=== PATIENT | female | born 1955 | race Caucasian/White ===

== ENCOUNTER 2016-05-22 05:14 | Emergency (ER) | payer MEDICARE, MEDICAID ==
[2016-05-22 06:13] LABS: Hematocrit 41 % (35-47); Hemoglobin 13.5 g/dl (12.0-16.0); Mean Corpuscular HGB Conc 33 g/dl (31-36); Mean Corpuscular Hemoglobin 30 pg (27-31); Mean Corpuscular Volume 89 fL (80-97); Mean Platelet Volume 9 um3 (7.4-10.4); Red Blood Count 4.58 10^6/ul (4.0-5.4); Red Cell Distribution Width 13 % (10.5-15); White Blood Count 6.6 10^3/ul (3.5-10.8)
[2016-05-22 06:25] LABS: ALT 13 U/L (7-52); AST 14 U/L (13-39); Albumin 3.9 g/dL (3.2-5.2); Alkaline Phosphatase 86 U/L (34-104); Anion Gap 4 mmol/L (2-11); BUN/Creatinine Ratio 12.3 (8-20); Blood Urea Nitrogen 9 mg/dL (6-24); CO2 Carbon Dioxide 35 mmol/L (22-32); Calcium 9.3 mg/dL (8.6-10.3); Chloride 102 mmol/L (101-111); EGFR African American 104.6 (>60); EGFR Non-African American 81.3 (>60); Globulin 2.8 g/dL (2-4); Glucose 99 mg/dL (70-100); Magnesium 2.3 mg/dL (1.9-2.7); Potassium 3.1 mmol/L (3.5-5.0); Sodium 141 mmol/L (133-145); Total Protein 6.7 g/dL (6.4-8.9)
[2016-05-22 06:39] LABS: Valproic Acid < 13.0 mcg/mL (50-100)
[2016-05-22] MEDS ORDERED: Potassium Chlor TAB* 20 MEQ TAB.ER PO ONE (06:39)
--- NOTE | 2016-05-22 06:39 | ED ---
Natalie Singh Erika, scribed for Naomie Lopez MD on 05/22/16 at 0527 . Neurological HPI - HPI Summary HPI Summary: Patient is a 61-year-old female BIBA to the ED with a CC of seizure. Per EMS, pt had a 0-rbqlep-dtrn, witnessed, tonic-clonic seizure at [facility], and was post-ictal afterwards, but this has resolved. Pt has a Hx dementia, and cannot provide a history. Hx dementia, intellectual disability, depression. LEVEL 5 CAVEAT - DEMENTIA. - History of Current Complaint Chief Complaint: EDSeizure Stated Complaint: SEIZURES Hx Obtained From: EMS Hx Last Menstrual Period: menopausal Onset/Duration: Resolved Current Severity: None Seizure Severity: Moderate Number of Seizures: 1 - lasted 5 minutes Syncope Context: Witnessed Seizure Character: Total-Clonic - Allergy/Home Medications Allergies/Adverse Reactions: Allergies Allergy/AdvReac Type Severity Reaction Status Date / Time Tobar Allergy Severe Unknown Verified 05/23/15 08:39 Reaction Details Milk-related Compounds Allergy Severe Unknown Verified 05/23/15 08:39 Reaction Details Eggs or Egg-derived Products Allergy Unknown Verified 05/23/15 08:39 Reaction Details Home Medications: Home Medications Lactulose* 30 ml PO BID 05/22/16 [History Confirmed 05/22/16] Lanolin OINT SYLVESTER* [Lansinoh OINT*] 1 applic TOPICAL BID 05/22/16 [History Confirmed 05/22/16] levETIRAcetam TAB* [Keppra TAB*] 500 mg PO BEDTIME 05/22/16 [History Confirmed 05/22/16] levETIRAcetam TAB* [Keppra TAB*] 750 mg PO BID 05/22/16 [History Confirmed 05/22] PMH/Surg Hx/FS Hx/Imm Hx Sensory History: Reports: Hx Contacts or Glasses - AT [facility] Opthamlomology History: Reports: Hx Contacts or Glasses - AT [facility] Neurological History: Reports: Hx Dementia, Hx Seizures, Other Neuro Impairments /Disorders - Intellectual disability Psychiatric History: Reports: Hx Anxiety, Hx Depression, Hx of Violent Episodes Against Others - CAN BE COMBATIVE POST SEIZURES Infectious Disease History: No Infectious Disease History: Denies: Traveled Outside the [place] in Last 30 Days - Family History Known Family History: Positive: Unknown - Level 5 caveat - dementia - Social History Occupation: Disabled Lives: [facility] [employer] Alcohol Use: None Hx Substance Use: No Substance Use Type: Reports: None Hx Tobacco Use: No Smoking Status (MU): Never Smoked Tobacco Review of Systems - ROS Summary Review of Systems Summary: LEVEL 5 CAVEAT - DEMENTIA. 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 No signs of trauma Eyes: Positive: EOMI, CRUZ ENT: Positive: Pharynx normal, TMs normal Neck: Positive: Supple, Nontender Respiratory/Lung Sounds: Positive: Clear to Auscultation, Breath Sounds Present. Negative: Rales, Rhonchi, Wheezes Cardiovascular: Positive: RRR, Other - No gallops. Negative: Murmur, Rub Abdomen Description: Positive: Nontender, Soft, Other: - No rebound. Negative: Distended, Guarding Bowel Sounds: Positive: Present Musculoskeletal: Positive: Strength/ROM Intact. Negative: Edema Left, Edema Right Neurological: Positive: Sensory/Motor Intact, Other - CN II-XII intact. Alert, but not oriented Psychiatric: Positive: Affect/Mood Appropriate Diagnostics - Vital Signs Vital Signs Temp Pulse Resp BP Pulse Ox 05/22/16 05:15 98.1 F 74 16 110/66 100 - Laboratory Lab Results: Lab Results 05/22/16 05/22/16 Range/Units 05:40 05:40 WBC 6.6 (3.5-10.8) 10^3/ul RBC 4.58 (4.0-5.4) 10^6/ul Hgb 13.5 (12.0-16.0) g/dl Hct 41 (35-47) % MCV 89 (80-97) fL MCH 30 (27-31) pg MCHC 33 (31-36) g/dl RDW 13 (10.5-15) % Plt Count 180 (150-450) 10^3/ul MPV 9 (7.4-10.4) um3 Neut % (Auto) 64.8 (38-83) % Lymph % (Auto) 29.2 (25-47) % Cocke % (Auto) 3.8 (1-9) % Eos % (Auto) 1.9 (0-6) % Baso % (Auto) 0.3 (0-2) % Absolute Neuts (auto) 4.3 (1.5-7.7) 10^3/ul Absolute Lymphs (auto) 1.9 (1.0-4.8) 10^3/ul Absolute Monos (auto) 0.3 (0-0.8) 10^3/ul Absolute Eos (auto) 0.1 (0-0.6) 10^3/ul Absolute Basos (auto) 0 (0-0.2) 10^3/ul Absolute Nucleated RBC 0.01 10^3/ul Nucleated RBC % 0.1 Sodium 141 (133-145) mmol/L Potassium 3.1 L (3.5-5.0) mmol/L Chloride 102 (101-111) mmol/L Carbon Dioxide 35 H (22-32) mmol/L Anion Gap 4 (2-11) mmol/L BUN 9 (6-24) mg/dL Creatinine 0.73 (0.51-0.95) mg/dL Est GFR ( Amer) 104.6 (>60) Est GFR (Non-Af Amer) 81.3 (>60) BUN/Creatinine Ratio 12.3 (8-20) Glucose 99 (70-100) mg/dL Calcium 9.3 (8.6-10.3) mg/dL Magnesium 2.3 (1.9-2.7) mg/dL Total Bilirubin 0.40 (0.2-1.0) mg/dL AST 14 (13-39) U/L ALT 13 (7-52) U/L Alkaline Phosphatase 86 (34-104) U/L Total Protein 6.7 (6.4-8.9) g/dL Albumin 3.9 (3.2-5.2) g/dL Globulin 2.8 (2-4) g/dL Albumin/Globulin Ratio 1.4 (1-3) Valproic Acid Pending Result Diagrams: 05/22/16 05:40 05/22/16 05:40 Lab Statement: Any lab studies that have been ordered have been reviewed, and results considered in the medical decision making process. Course/Dx - Course Course Of Treatment: 61 yo female with dementia and epilepsy who comes in s/p seizure with post ictal state resolved. She has apparently been switched off of valproic acid but a level is pending as well as a leviciratem level. Other labs are essentially normal waiting on a urine now and will replete potassium. Will sign pt out to am physician Tonny - Diagnoses Provider Diagnoses: Seizure Discharge - Discharge Plan Condition: Stable Disposition: HOME The documentation as recorded by the Natalie noel Erika accurately reflects the service I personally performed and the decisions made by me, Naomie Lopez MD.
[2016-05-22 06:52] LABS: Urine Bilirubin Negative (Negative); Urine Glucose Negative (Negative); Urine Nitrite Negative (Negative)
[2016-05-22 07:11] VITALS: BP 109/72
== END 2016-05-22 07:22 | disposition home or self-care (01) ==
LOC: ED 05:14
DX: G40.409 Other generalized epilepsy and epileptic syndromes, not intractable, without status epilepticus (principal); F03.90 Unspecified dementia, unspecified severity, without behavioral disturbance, psychotic disturbance, mood disturbance, and anxiety; F79 Unspecified intellectual disabilities
CPT/HCPCS: 36415; 80053; 80164; 80177; 81003; 83735; 85025; 87641; 99283; A9270-GY

== ENCOUNTER 2017-07-24 09:11 | Emergency (ER) | payer MEDICARE, MEDICAID ==
[2017-07-24] MEDS ORDERED: levETIRAcetam TAB* 500 MG PO ONE (09:34)
--- NOTE | 2017-07-24 10:11 | RAD ---
INDICATION: Seizure with subsequent trauma yielding hematoma to forehead COMPARISON: Most recent comparison CT of the brain is dated July 08, 2015 TECHNIQUE: Contiguous axial sections of the brain were obtained from the skull base to the vertex without contrast. FINDINGS: The ventricles, cisterns and sulci exhibit symmetrical involutional changes unchanged from the prior CT of the brain. There is mild to moderate periventricular and subcortical white matter hypoattenuation, similar to the previous CT of the brain, and most consistent with chronic microvascular disease. The lau-white matter differentiation is adequately maintained and there is no sulcal effacement. No significant focal abnormality or mass effect is present. There is no evidence for intracranial hemorrhage. There is subcutaneous induration and thickening overlying the left frontal bone consistent with recent trauma without underlying calvarial fracture. The visualized portion of the paranasal sinuses appear clear. The mastoid air cells are well aerated bilaterally. IMPRESSION: 1. Soft tissue swelling and induration overlying the left frontal bone without underlying calvarial fracture or acute intracranial hemorrhage. 2. Chronic intracranial findings described above.
[2017-07-24 10:35] VITALS: BP 105/88
--- NOTE | 2017-07-24 10:45 | ED ---
Alton Singh Stephanie, scribed for Savage Cope MD on 07/24/17 at 0941 . Neurological HPI - HPI Summary HPI Summary: The pt is a 62 y/o F BIBA to the ED with c/o seizure that occurred at 08:30 today. Per triage note, the seizure occurred while eating breakfast and lasted 1 min. The pt fell off her bed causing head trauma. She denies BABIN, nausea and neck pain. The pt is on Keppra 1000 mg BID. HPI limited due to dementia at baseline. - History of Current Complaint Chief Complaint: EDSeizure Stated Complaint: SEIZURE Time Seen by Provider: 07/24/17 09:28 Hx Obtained From: Patient, Medical Records Hx From Patient Unobtainable Due To: Dementia Hx Last Menstrual Period: menopausal Onset/Duration: Sudden Onset, Started hours ago, Resolved Timing: Intermittent Episodes Lasting: - 1 minute Current Severity: Mild Pain Intensity: 3 Pain Scale Used: 0-10 Numeric Syncope Context: Witnessed Aggravating: Nothing Alleviating: Spontanious Resolution - Allergy/Home Medications Allergies/Adverse Reactions: Allergies Allergy/AdvReac Type Severity Reaction Status Date / Time saleh Allergy Unknown Verified 07/24/17 09:20 Reaction Details Egg Derived Allergy Unknown Verified 07/24/17 09:20 Reaction Details milk Allergy Unknown Verified 07/24/17 09:20 Reaction Details Home Medications: Home Medications Acetaminophen TAB* [Tylenol TAB*] 650 mg PO Q6H PRN 07/24/17 [History Confirmed 07/24/17] Citalopram TAB* [CeleXA TAB*] 20 mg PO DAILY 07/24/17 [History Confirmed ] Donepezil TAB* [Aricept 5 MG TAB*] 10 mg PO BEDTIME 07/24/17 [History Confirmed 07/24/17] Lactobacillus Acidophilus* [Culturelle*] 1 cap PO BID 07/24/17 [History Confirmed 07/24/17] Loperamide CAP* [Imodium CAP*] 2 mg PO Q4H PRN 07/24/17 [History Confirmed 07/24] QUEtiapine TAB* [SEROquel TAB*] 100 mg PO TID 07/24/17 [History Confirmed ] PMH/Surg Hx/FS Hx/Imm Hx Sensory History: Reports: [facility] Op[facility] History: Reports: [facility]x [facility] - [facility] Neurological History: Reports: Hx Dementia, Hx Seizures, Other Neuro Impairments /Disorders - Intellectual disability Psychiatric History: Reports: Hx Anxiety, Hx Depression, Hx of Violent Episodes Against Others - CAN BE COMBATIVE POST SEIZURES - Surgical History Surgery Procedure, Year, and Place: UNKNOWN due to pt having dementia Infectious Disease History: No Infectious Disease History: Denies: Traveled Outside the [place] in Last 30 Days - Family History Known Family History: Positive: Unknown - Level 5 caveat - dementia - Social History Occupation: Retired Lives: [facility] Alcohol Use: None Hx Substance Use: No Substance Use Type: Reports: None Hx Tobacco Use: No Smoking Status (MU): Never Smoked Tobacco Have You Smoked in the Last Year: No Review of Systems - ROS Summary Review of Systems Summary: ROS limited due to dementia at baseline. Negative: Fever Negative: Nausea Musculoskeletal: Negative - Neck pain Negative: Headache All Other Systems Reviewed And Are Negative: Yes Physical Exam - Summary Physical Exam Summary: Appearance: mildly ill-appearing, no pain distress Skin: warm, dry, reflects adequate perfusion Head/face: hematoma on L forehead near hairline Eyes: EOMI, CRUZ ENT: normal, no bleeding from mouth Neck: supple, non-tender, no midline tenderness Respiratory: CTA, breath sounds present Cardiovascular: RRR, pulses symmetrical Abdomen: non-tender, soft Bowel Sounds: present Musculoskeletal: strength/ROM intact, no evidence of injuries to extremities, tremor in UE bilaterally Neuro: sensory motor intact, A&Ox3, generalized weakness Triage Information Reviewed: Yes Vital Signs On Initial Exam: Initial Vitals Temp Pulse Resp BP Pulse Ox 97.3 F 82 14 142/76 98 07/24/17 09:16 07/24/17 09:16 07/24/17 09:16 07/24/17 09:16 07/24/17 09:16 Vital Signs Reviewed: Yes Diagnostics - Vital Signs Vital Signs Temp Pulse Resp BP Pulse Ox 07/24/17 09:16 97.3 F 82 14 142/76 98 - Laboratory Lab Statement: Any lab studies that have been ordered have been reviewed, and results considered in the medical decision making process. - CT Brain CT Interpretation: Positive (See Comments) CT Interpretation Completed By: Radiologist - 1. Soft tissue swelling and induration overlying the left frontal bone without underlying calvarial fracture or acute intracranial hemorrhage. 2. Chronic intracranial findings described above. ED physician has reviewed this report. Re-Evaluation - Re-Evaluation First Eval Re-Evaluation Time: 10:27 Change: Unchanged - Pt discussed plan of discharge with the pt. Course/Dx - Course Course Of Treatment: [facility] She had a fall after seizure. Has known epilepsy. On Keppra. Did not receive a.m. meds. Keppra dose given. CT is negative. Patient also has a POLST indicating comfort care measures and do not send to Hospital. - Differential Dx Differential Diagnoses Neuro: Positive: Headache, Hematoma, Hemorrhage - Diagnoses Provider Diagnoses: Closed head injury without concussion, Epileptic seizure, Scalp hematoma Discharge - Sign-Out/Discharge Documenting (check all that apply): Discharge/Admit/Transfer - Discharge - Discharge Plan Condition: Stable Disposition: CUSTODIAL FACILITY Patient Education Materials: Head Injury (ED) Referrals: Efe Rowell MD [Primary Care Provider] - Additional Instructions: Return to [facility]. Return if worse, new symptoms or other concerns. Patient's POLST indicates DO NOT SEND TO HOSPITAL unless severe symptoms. - Billing Disposition and Condition Condition: STABLE Disposition: SNF The documentation as recorded by the Alton noel Stephanie accurately reflects the service I personally performed and the decisions made by Anatoliy joshi Kirk, MD.
== END 2017-07-24 10:32 ==
LOC: ED 09:11
DX: S09.90XA Unspecified injury of head, initial encounter (principal); G40.909 Epilepsy, unspecified, not intractable, without status epilepticus; S00.03XA Contusion of scalp, initial encounter; W06.XXXA Fall from bed, initial encounter; Y92.9 Unspecified place or not applicable
CPT/HCPCS: 70450; 99283; A9270-GY

== ENCOUNTER 2018-01-22 10:49 | Emergency (ER) | payer MEDICARE, MEDICAID ==
--- NOTE | 2018-01-22 11:19 | ED ---
Head Injury - HPI Summary HPI Summary: Level 5 caveat: Unable to obtain complete HPI due to dementia The pt is a 63 y/o female BIBA to [facility] c/o head injuries s/p a fall from a standing position. She notes a parietal BABIN and neck pain rated 6/10 in severity. Per EMS the pt did not speak at baseline. She is a comfort measures only pt at [facility]. - History Of Current Complaint Stated Complaint: FALL Time Seen by Provider: 01/22/18 10:53 Hx Obtained From: Patient, EMS Hx From Patient Unobtainable Due To: Dementia Hx Last Menstrual Period: Menopausal Mechanism Of Injury: Fall From A Standing Position Onset/Duration: Still Present Severity Currently: Moderate Severity Initially: Moderate Pain Intensity: 6 Pain Scale Used: 0-10 Numeric Location of Head Injury: Parietal Associated Signs And Symptoms: Neck Pain, Headache - Allergies/Home Medications Allergies/Adverse Reactions: Allergies Allergy/AdvReac Type Severity Reaction Status Date / Time saleh Allergy Unknown Verified 07/24/17 09:20 Reaction Details Egg Derived Allergy Unknown Verified 07/24/17 09:20 Reaction Details milk Allergy Unknown Verified 07/24/17 09:20 Reaction Details PMH/Surg Hx/FS Hx/Imm Hx Previously Healthy: No - Level 5 caveat: Unable to obtain complete MHx due to dementia Sensory History: Reports: Hx [facility]es - [facility] Opthamlomology History: Reports: Hx Contacts or Glasses - AT [facility] Neurological History: Reports: Hx Dementia, Hx Seizures, Other Neuro Impairments /Disorders - Intellectual disability Psychiatric History: Reports: Hx Anxiety, Hx Depression, Hx of Violent Episodes Against Others - Can be combative post seizures - Surgical History Surgery Procedure, Year, and Place: Unknown due to pt having dementia Infectious Disease History: Unable to Obtain/Confirm Infectious Disease History: Denies: Traveled Outside the [place] in Last 30 Days - Family History Known Family History: Positive: Unknown - Level 5 caveat - dementia - Social History Occupation: Retired Lives: Assisted Living - [facility] Alcohol Use: None Hx Substance Use: No Substance Use Type: Reports: None Hx Tobacco Use: No Smoking Status (MU): Never Smoked Tobacco Have You Smoked in the Last Year: No Review of Systems - ROS Summary Review of Systems Summary: Level 5 caveat: Unable to obtain complete ROS due to dementia Constitutional: Other - Positive: Parietal Hematoma Musculoskeletal: Other - Positive: Neck pain Positive: Headache - Parietal All Other Systems Reviewed And Are Negative: No Physical Exam - Summary Physical Exam Summary: Level 5 caveat: Unable to obtain complete PE due to dementia Appearance: The patient is well-nourished and demented but in no acute distress and in no acute pain. She answers simple questions but it is unclear if they are appropriate. Skin: The skin is warm and dry and skin color reflects adequate perfusion. HEENT: The head has a mildly tender R cephalohematoma in the R parietal region . The pupils are equal and reactive. The conjunctivae are clear and without drainage. Nares are patent and without drainage. Mouth reveals moist mucous membranes and the throat is without erythema and exudate. The external ears are intact. The ear canals are patent and without drainage. The tympanic membranes are intact. Neck: The neck is supple with full range of motion and non-tender. There are no carotid bruits. There is no neck vein distension. Respiratory: Chest is non-tender. Lungs are clear to auscultation and breath sounds are symmetrical and equal. Cardiovascular: Heart is regular rate and rhythm. There is no murmur or rub auscultated. There is no peripheral edema and pulses are symmetrical and equal. Abdomen: The abdomen is soft and non-tender. There are normal bowel sounds heard in all four quadrants and there is no organomegaly palpated. Musculoskeletal: There is no back tenderness noted. Extremities are non-tender with full range of motion. There is good capillary refill. There is no peripheral edema or calf tenderness elicited. Neurological: Patient is alert and oriented to person, place and time. The patient has symmetrical motor strength in all four extremities. Cranial nerves are grossly intact. Deep tendon reflexes are symmetrical and equal in all four extremities. Psychiatric: The patient has an appropriate affect and does not exhibit any anxiety or depression. Triage Information Reviewed: Yes Vital Signs On Initial Exam: Initial Vitals Temp Pulse Resp BP Pulse Ox 96.7 F 76 18 113/81 98 01/22/18 10:55 01/22/18 10:55 01/22/18 10:55 01/22/18 10:55 01/22/18 10:55 Vital Signs Reviewed: Yes Completion Of Physical Exam Limited Due To: Dementia Diagnostics - Vital Signs Vital Signs Temp Pulse Resp BP Pulse Ox 01/22/18 10:55 96.7 F 76 18 113/81 98 - Laboratory Result Diagrams: 01/22/18 11:35 01/22/18 11:35 Lab Statement: Any lab studies that have been ordered have been reviewed, and results considered in the medical decision making process. Head Injury Course/Dx Course Of Treatment: Ms. Tracy was sent in with report that she had a breakthrough seizure today and hit her head. At baseline she is confused but she was not talking at all and she was sent him after consultation with the family. She is a comfort care patient only according to her MOLST form. She cannot give any history and her vitals are stable. She did have a cephalohematoma in the right parietal area. Labs were within normal limits and I could not identify any reason for her breakthrough seizure. She is on Keppra and the level was sent. A CT scan was not obtained as no action would be taken if it were positive. - Diagnoses Provider Diagnoses: Head injury, Breakthrough seizure Discharge - Sign-Out/Discharge Documenting (check all that apply): Patient Departure - DC - Discharge Plan Condition: Stable Disposition: HOME Patient Education Materials: Head Injury (ED), Epilepsy (ED) Referrals: Efe Rowell MD [Primary Care Provider] - Additional Instructions: Follow up with your PCP in 1-2 days Return to ED for any new or worsening symptoms - Billing Disposition and Condition Condition: STABLE Disposition: Home - Attestation Statements Document Initiated by Faridehibmario: Yes Documenting Scribe: Maggie Carter Provider For Whom Luis is Documenting (Include Credential): Dr. Sterling Ellis MD Scribe Attestation: Maggie Singh , scribed for Dr. Sterling Ellis MD on 01/22/18 at 2126. Scribe Documentation Reviewed: Yes Provider Attestation: The documentation as recorded by the Maggie noel accurately reflects the service I personally performed and the decisions made by me, Dr. Sterling Ellis MD
[2018-01-22 11:45] LABS: ABS Basophils 0.1 10^3/ul (0-0.2); ABS Eosinophils 0.1 10^3/ul (0-0.6); ABS Lymphocytes 1.4 10^3/ul (1.0-4.8); ABS Monocytes 0.2 10^3/ul (0-0.8); ABS Neutrophils 3.7 10^3/ul (1.5-7.7); ABS Nucleated RBC 0 10^3/ul; Hematocrit 44 % (35-47); Hemoglobin 14.3 g/dl (12.0-16.0); Lymphocyte % 25.2 % (25-47); Mean Corpuscular HGB Conc 33 g/dl (31-36); Mean Corpuscular Hemoglobin 30 pg (27-31); Mean Corpuscular Volume 92 fL (80-97); Mean Platelet Volume 9.2 um3 (7.4-10.4); Nucleated Red Blood Cells % 0.6; Platelet Count 170 10^3/ul (150-450); Red Blood Count 4.75 10^6/ul (4.00-5.40); Red Cell Distribution Width 14 % (10.5-15); White Blood Count 5.4 10^3/ul (3.5-10.8)
[2018-01-22 12:06] LABS: INR 0.93 (0.77-1.02)
[2018-01-22 13:55] VITALS: BP 141/87
== END 2018-01-22 14:25 | disposition home or self-care (01) ==
LOC: ED 10:49
DX: S09.90XA Unspecified injury of head, initial encounter (principal); G40.909 Epilepsy, unspecified, not intractable, without status epilepticus; W01.198A Fall on same level from slipping, tripping and stumbling with subsequent striking against other object, initial encounter; F03.90 Unspecified dementia, unspecified severity, without behavioral disturbance, psychotic disturbance, mood disturbance, and anxiety; Y92.129 Unspecified place in nursing home as the place of occurrence of the external cause
CPT/HCPCS: 36415; 80053; 80177; 83605; 83735; 85025; 85610; 99282

== ENCOUNTER 2018-07-15 10:47 | Emergency (ER) | payer MEDICARE ==
--- NOTE | 2018-07-15 11:04 | ED ---
Neurological HPI - HPI Summary HPI Summary: Patient is a 63 y/o female brought in by EMS who presents to the ED s/p seizure. She was sent here from [facility]. As per EMS, she had a witnessed seizure during her physical therapy appointment. There were no head injuries. She is currently post-ictal and minimally responds to voice commands. PMHx seizure, dementia, intellectual disability. As per medical records, patient is on Depakote and Keppra. Level 5 caveat due to dementia and AMS. - History of Current Complaint Chief Complaint: EDSeizure Stated Complaint: SEIZURES PER EMS Time Seen by Provider: 07/15/18 10:49 Hx Obtained From: EMS, Medical Records Hx From Patient Unobtainable Due To: Dementia Hx Last Menstrual Period: Menopausal Onset/Duration: Sudden Onset, Resolved Neurological Deficit Location: Generalized Pain Intensity: 0 Aggravating: Nothing Alleviating: Spontanious Resolution Associated Signs and Symptoms: Positive: Seizure Related Hx: Seizure - Allergy/Home Medications Allergies/Adverse Reactions: Allergies Allergy/AdvReac Type Severity Reaction Status Date / Time saleh Allergy Unknown Verified 07/24/17 09:20 Reaction Details Egg Derived Allergy Unknown Verified 07/24/17 09:20 Reaction Details milk Allergy Unknown Verified 07/24/17 09:20 Reaction Details Home Medications: Home Medications Divalproex Sprinkle CAP* [Depakote Sprinkle CAP*] 250 mg PO BID 07/15/18 [ History Confirmed 07/15/18] Lactase 3,000 unit PO Q6HR PRN 07/15/18 [History Confirmed 07/15/18] Loperamide HCl [Imodium A-D] 2 mg PO SEE INSTRUCTIONS PRN 07/15/18 [History Confirmed 07/15/18] Magnesium Hydroxide LIQ* [Milk of Magnesia LIQ*] 30 ml PO BEDTIME PRN 07/15/18 [ History Confirmed 07/15/18] levETIRAcetam LIQ* [Keppra LIQ*] 1,500 mg PO BID 07/15/18 [History Confirmed ] PMH/Surg Hx/FS Hx/Imm Hx Sensory History: Reports: Hx Contacts or Glasses - AT [facility] Opthamlomology History: Reports: Hx Contacts or Glasses - AT [facility] Neurological History: Reports: Hx Dementia, Hx Seizures, Other Neuro Impairments /Disorders - Intellectual disability Psychiatric History: Reports: Hx Anxiety, Hx Depression, Hx of Violent Episodes Against Others - Can be combative post seizures - Surgical History Surgery Procedure, Year, and Place: Unknown due to pt having dementia Infectious Disease History: No Infectious Disease History: Denies: Traveled Outside the [place] in Last 30 Days - Family History Known Family History: Positive: Unknown - Level 5 caveat - dementia - Social History Alcohol Use: None Hx Substance Use: No Substance Use Type: Reports: None Hx Tobacco Use: No Smoking Status (MU): Never Smoked Tobacco Have You Smoked in the Last Year: No Review of Systems Negative: Other - head injury Neurological: Other - seizure, post-ictal All Other Systems Reviewed And Are Negative: No Physical Exam - Summary Physical Exam Summary: Appearance: Well appearing, no pain distress Skin: warm, dry, reflects adequate perfusion Head/face: normal Eyes: EOMI, CRUZ ENT: normal Neck: supple, non-tender Respiratory: CTA, breath sounds present Cardiovascular: RRR, pulses symmetrical Abdomen: non-tender, soft Musculoskeletal: normal, strength/ROM intact Neuro: sensory motor intact, alert but not oriented, post-ictal and lethargic Triage Information Reviewed: Yes Vital Signs On Initial Exam: Initial Vitals Temp Pulse Resp BP Pulse Ox 97.6 F 89 16 111/81 97 07/15/18 10:49 07/15/18 10:49 07/15/18 10:49 07/15/18 10:49 07/15/18 10:49 Vital Signs Reviewed: Yes Completion Of Physical Exam Limited Due To: Dementia - Lashell Coma Scale Best Eye Response: 4 - Spontaneous Best Motor Response: 6 - Obeys Commands Best Verbal Response: 4 - Confused Coma Scale Total: 14 Diagnostics - Vital Signs Vital Signs Temp Pulse Resp BP Pulse Ox 07/15/18 10:49 97.6 F 89 16 111/81 97 - Laboratory Result Diagrams: 07/15/18 11:27 07/15/18 11:27 Lab Statement: Any lab studies that have been ordered have been reviewed, and results considered in the medical decision making process. - CT Brain CT CT Interpretation Completed By: Radiologist Summary of CT Findings: NO ACUTE INTRACRANIAL PATHOLOGY. DIFFUSE INVOLUTIONAL CHANGE WITH CHRONIC SMALL VESSEL ISCHEMIC CHANGES. ED physician reviewed radiology report. - EKG 11:17 Cardiac Rate: NL - 85 bpm EKG Rhythm: Sinus Rhythm ST Segment: Normal Summary of EKG Findings: Nl axis Re-Evaluation - Re-Evaluation First Eval Re-Evaluation Time: 12:30 Change: Improved Comment: Pt is now alert and oriented. However her exam is still limited due to her dementia. Course/Dx - Course Course Of Treatment: Patient is a 63 y/o female brought in by EMS who presents to the ED s/p seizure. PMHx seizure, dementia, intellectual disability. As per medical records, patient is on Depakote and Keppra. An initial physical exam revealed alert but not oriented, post-ictal and lethargic. GCS 14. Throughout the course patient became more alert and oriented. A brain CT was negative. An EKG revealed a normal rate of [address] Chaney, he recommends increasing her dosage to 500 mg Depakote BID. Final dx is seizure, and she is discharged back to [facility]. Patient is agreeable with this plan. - Differential Dx Differential Diagnoses Neuro: Positive: Seizure Disorder, Vasovagal Reaction - Diagnoses Provider Diagnoses: Seizure - Physician Notifications Discussed Care Of Patient With: Charlie Chaney Time Discussed With Above Provider: 13:30 Instructed by Provider To: Other - Increase her dosage to 500 mg Depakote BID and discharge the patient. Discharge - Sign-Out/Discharge Documenting (check all that apply): Patient Departure - Discharge Patient Received Moderate/Deep Sedation with Procedure: No - Discharge Plan Condition: Improved Disposition: HOME Prescriptions: Divalproex Sodium [Depakote] 500 mg PO BID #60 tablet. Patient Education Materials: Epilepsy (ED) Referrals: [place] DO [Primary Care Provider] - 3 Days Additional Instructions: Increase Depakote dosage to 500 [address] per [address] Chaney, neurologist. RETURN TO THE ED WITH ANY NEW OR WORSENING SYMPTOMS. - Billing Disposition and Condition Condition: IMPROVED Disposition: Home - Attestation Statements Document Initiated by Scribe: Yes Documenting Scribe: Jennifer Joe Provider For Whom Luis is Documenting (Include Credential): Tariq Junior MD Scribe Attestation: Jennifer Singh scribed for Tariq Junior MD on 07/15/18 at 1358. Scribe Documentation Reviewed: Yes Provider Attestation: The documentation as recorded by the Jennifer noel accurately reflects the service I personally performed and the decisions made by me, Tariq Junior MD Status of Scribe Document: Viewed
[2018-07-15] MEDS ORDERED: NS 0.9% 1000 ML** 1,000 ML IV ONE (11:08)
[2018-07-15 11:35] LABS: ABS Basophils 0 10^3/ul (0-0.2); ABS Eosinophils 0.1 10^3/ul (0-0.6); ABS Lymphocytes 1.3 10^3/ul (1.0-4.8); ABS Monocytes 0.2 10^3/ul (0-0.8); ABS Neutrophils 3.1 10^3/ul (1.5-7.7); ABS Nucleated RBC 0 10^3/ul; Eosinophil % 2.6 %; Hematocrit 36 % (33-41); Hemoglobin 12.2 g/dL (12.0-16.0); Lymphocyte % 27.2 %; Mean Corpuscular HGB Conc 34 g/dL (31-36); Mean Corpuscular Hemoglobin 31 pg (27-31); Mean Corpuscular Volume 92 fL (80-97); Nucleated Red Blood Cells % 0; Platelet Count 121 10^3/uL (150-450); Red Blood Count 3.92 10^6 /uL (3.70-4.87); Red Cell Distribution Width 14 % (10.5-15); White Blood Count 4.7 10^3/uL (3.5-10.8)
[2018-07-15 11:53] LABS: Albumin 3.7 g/dL (3.2-5.2); Albumin/Globulin Ratio 1.9 (1-3); BUN/Creatinine Ratio 23.7 (8-20); Calcium 8.7 mg/dL (8.6-10.3); EGFR African American 93.3 (>60); EGFR Non-African American 77.1 (>60); Potassium 3.9 mmol/L (3.5-5.0); Total Bilirubin 0.5 mg/dL (0.2-1.0); Total Protein 5.7 g/dL (6.4-8.9)
[2018-07-15] MEDS ORDERED: Valproic Acid CAP(*) 250 MG PO ONE (13:31)
[2018-07-15 14:54] VITALS: BP 105/74
== END 2018-07-15 14:40 | disposition home or self-care (01) ==
LOC: ED 10:47
DX: R56.9 Unspecified convulsions (principal); R94.31 Abnormal electrocardiogram [ECG] [EKG]; F03.90 Unspecified dementia, unspecified severity, without behavioral disturbance, psychotic disturbance, mood disturbance, and anxiety; Z91.012 Allergy to eggs
CPT/HCPCS: 36415; 70450; 80053; 80164; 83735; 84484; 85025; 93005; 96360; 99284; A9270-GY

== ENCOUNTER → 2018-09-04 16:28 | Emergency (ER) | payer MEDICARE ==
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
[2018-09-04 22:13] VITALS: BP 101/78
== END | disposition home or self-care (01) ==
LOC: ED 16:28
DX: S32.502A Unspecified fracture of left pubis, initial encounter for closed fracture (principal); W19.XXXA Unspecified fall, initial encounter; Y92.129 Unspecified place in nursing home as the place of occurrence of the external cause; M47.892 Other spondylosis, cervical region; E04.1 Nontoxic single thyroid nodule; Z79.899 Other long term (current) drug therapy
CPT/HCPCS: 70450; 72125; 72190; 99283

== ENCOUNTER 2018-10-02 01:11 | Emergency (ER) | payer MEDICARE, MEDICAID ==
--- OUTSIDE RECORDS SUMMARY | 2018-10-02 02:12 | XMS REPORT | Continuity of Care Document ---
:1955 External Reference #:[id number] Author Name Gail Cardoza Care Team Providers Name Role Phone Tierra Grande DO Primary Care Physician Unavailable Payers Date Identification Numbers Payment Provider Subscriber Effective: 2014 Policy Number: [id number] Medicare Keisha Tracy PayID: [id number] [address] [place] [address] Expires: 2018 Policy Number: [id number] Medicaid Keisha Tracy Group Name: 1 1 [address] PayID: [id number] [place] [address] Problems Active Problems Provider Date Shoulder joint pain Jermain Calloway M.D. Onset: 10/19/2014 Closed fracture proximal humerus, greater Jermain Calloway M.D. Onset: 10/19 tuberosity Closed fracture of surgical neck of humerus Jermain Calloway M.D. Onset: Other frontotemporal dementia Asuncion Sanabria MD Onset: 07/18/2017 Unspecified dementia with behavioral Asuncion Sanabria MD Onset: 07/18/2017 disturbance Epilepsy Asuncion Sanabria MD Onset: 07/18/2017 Hypothyroidism Asuncion Sanabria MD Onset: 07/18/2017 Severe depressed bipolar I disorder without Cony Skaggs NP Onset: 2017 psychotic features Seizure Tierra Grande D.O. Onset: 07/18/2017 Delusional disorders Cony Skaggs NP Onset: 07/18/2017 Essential hypertension Cony Skaggs NP Onset: 07/18/2017 Bipolar disorder Cony Skaggs NP Onset: 07/18/2017 Dementia Cony Skaggs NP Onset: 07/18/2017 Dementia Eliz Coombs DO Onset: 07/18/2017 Malaise and fatigue Faiza Posada NP Onset: 07/18/2017 Psychotic disorder Faiza Posada NP Onset: 07/18/2017 Closed fracture of acromial end of clavicle Nito Toledo MD Onset: 2017 Fracture of other parts of pelvis, Nito Toledo MD Onset: 09/24/2018 subsequent encounter for fracture with routine healing Social History Type Date Description Comments Sex Unknown Hand Dominance Right-handed ETOH Use Denies alcohol use Tobacco Use Start: Unknown Patient has never smoked Smoking Status Reviewed: 09/24/18 Patient has never smoked Exercise Type/Frequency Does not exercise Allergies, Adverse Reactions, Alerts Description No Known Drug Allergies Medications Active Medications SIG Qnty Indications Ordering Date Provider Milk Of Magnesia Take 30 mls by [facility] 08/23/2017 mouth every 24 MAGUE Skaggs 400mg/5ML Suspension hours as needed for constipation Levetiracetam 1 tab (1000 mg) by 75tabs G40.909 Cel[facility] 07/24/2017 1000mg mouth every morning Cardona, N.P. Tablets and 1.5 tabs (1,500 mg) by mouth at bedtime Lactobacillus 1 PO bid 30tabs [facility] 07/18/2017 MAGUE Skaggs Tablets Loperamide HCL take one capsule by 100caps [facility] 07/18/2017 2mg mouth every 4 hours MAGUE Skaggs Capsules as needed Quetiapine Fumarate 1 tab PO tid 30tabs F03.91 [facility] 07/18/2017 MAGUE Skaggs 100mg Tablets Lactase Enzyme Take 1 tablet by [facility] 06/07/2017 mouth every 6 hours MAGUE Skaggs 3000Unit Tablets as needed for lactose intolerance Melatonin 1 tab by mouth Unknown 3mg every night at Capsules bedtime Depakote Sprinkles take two caps by Unknown mouth at 8am and 125mg CSDR two caps at 4pm Tolnaftate apply as needed Unknown 1% Powder Acetaminophen 1 as needed three Unknown 650mg times a day as Suppository needed pain/fever >98 Vitamin D3 one by mouth once 4caps E55.9 Harjinder, 09138Aruo monthly Tierra, DO Capsules Celexa 1 by mouth every F31.4 Harjinder, 20mg Tablets day Tierra, DO History Medications Tolnaftate apply on the 45gm Cony Skaggs, 07/18/2017 - 1% Powder affected areas PRIVATE ADVISOR 02/28/2018 every shift prn Aricept take one tablet 30tabs F03.91 [facility] 07/18[facility]2017 - 10mg Tablets by mouth at [employer]IVATE ADVISOR 02/28/2018 bedtime Levetiracetam 1 tab by mouth 60tabs R56.9 [facility], 07/18/2017 - 1000mg twice a day [employer]IVATE [employer]OR 07/25/2017 Tablets Triamcinolone apply bid to R 30gm [facility], 07/18/2017 - Acetonide ankle [employer]IVATE ADVISOR 02/28/2018 0.1% Ointment Vitamin B Complex 1 by mouth every Unknown - day 07/18/2017 Tablets Divalproex Sodium Unknown - 125mg 07/18/2017 Tablets Trazodone HCL give 25mg PO Q G47.00 Harjinder, Tierra, - 50mg hs DO 08/25/2018 Tablets Acetaminophen 2 by mouth four Unknown - 325mg times a day as 07/18/2017 Tablets needed [place] 1-2 by mouth Unknown - 5-325mg Tablets every 4 hours as 07/18/2017 needed Guaifenesin Unknown - 07/18/2017 Apap 2 tabs by mouth Unknown - 325mg Tablets every 6 hours as 02/28/2018 needed Vital Signs Date Vital Result Comment 09/24/2018 10:23am Height 66 inches 5'6" Weight 170.00 lb BP Systolic 131 mmHg BP Diastolic 74 mmHg Respiratory Rate 16 /min Pain Level 4 BMI (Body Mass Index) 27.4 kg/m2 08/26/2018 11:06am Height 66 inches 5'6" Weight 171.00 lb Heart Rate 68 /min BP Systolic 122 mmHg BP Diastolic 70 mmHg BMI (Body Mass Index) 27.6 kg/m2 08/16/2018 12:28pm Weight 172.00 lb Heart Rate 66 /min BP Systolic 120 mmHg BP Diastolic 82 mmHg Respiratory Rate 18 /min Body Temperature 97.8 F Pain Level 0 O2 % BldC Oximetry 97 % 06/19/2018 4:24pm Weight 175.25 lb Heart Rate 76 /min BP Systolic 116 mmHg BP Diastolic 68 mmHg Respiratory Rate 20 /min 04/26/2018 9:51am Weight 186.00 lb 03/27/18 02/21/2018 1:40pm Height 66 inches 5'6" Weight 186.00 lb BP Systolic 112 mmHg BP Diastolic 74 mmHg Respiratory Rate 18 /min Pain Level 3 BMI (Body Mass Index) 30.0 kg/m2 02/08/2018 1:00pm Height 66 inches 5'6" Weight 186.00 lb Heart Rate 78 /min BP Systolic Sitting 130 mmHg Rue reg cuff BP Diastolic Sitting 80 mmHg Rue reg cuff BMI (Body Mass Index) 30.0 kg/m2 01/31/2018 3:10pm Heart Rate 76 /min BP Systolic 116 mmHg BP Diastolic 70 mmHg Respiratory Rate 16 /min Pain Level 0 01/24/2018 10:56am Heart Rate 60 /min BP Systolic 120 mmHg BP Diastolic 60 mmHg Respiratory Rate 20 /min Body Temperature 98.6 F O2 % BldC Oximetry 94 % 01/22/2018 10:30am Heart Rate 72 /min BP Systolic 130 mmHg BP Diastolic 90 mmHg Respiratory Rate 28 /min Body Temperature 98.4 F 10/01/2017 6:03pm Weight 195.12 lb Heart Rate 62 /min BP Systolic Sitting 106 mmHg BP Diastolic Sitting 68 mmHg Respiratory Rate 18 /min Body Temperature 97.9 F O2 % BldC Oximetry 96 % 09/19/2017 6:13pm Heart Rate 60 /min BP Systolic Sitting 96 mmHg BP Diastolic Sitting 60 mmHg Respiratory Rate 16 /min Body Temperature 96.4 F O2 % BldC Oximetry 95 % 11/16/2014 1:01pm Height 66 inches 5'6" Weight 239.00 lb Pain Level 0 BMI (Body Mass Index) 38.6 kg/m2 10/19/2014 1:12pm Height 66 inches 5'6" Weight 239.00 lb Heart Rate 90 /min BP Systolic 135 mmHg BP Diastolic 93 mmHg BMI (Body Mass Index) 38.6 kg/m2 Results Test Date Facility Test Result H/L Range Note Laboratory test 07/15/2018 [facility] Valproic Acid 46.0 g/mL Low 50-[address] (Depakene) [place] [address] [phone] CBC Auto Diff 07/15/2018 [facility] White Blood 4.7 10^3/uL N 3.5-10.[address] [place] [address] [phone] Red Blood Count 3.92 10^6/uL N 3.70-4.87 Hemoglobin 12.2 g/dL N 12.0-16.0 Hematocrit 36 % N 33-41 Mean Corpuscular Volume 92 fL N 80-97 Mean Corpuscular Hemoglobin 31 pg N 27-31 Mean Corpuscular HGB Conc 34 g/dL N 31-36 Red Cell Distribution Width 14 % N 10.5-15 Platelet Count 121 10^3/uL Low 150-450 Mean Platelet Volume 9.0 fL N 7.4-10.4 Abs Neutrophils 3.1 10^3/uL N 1.5-7.7 Abs Lymphocytes 1.3 10^3/uL N 1.0-4.8 Abs Monocytes 0.2 10^3/uL N 0-0.8 Abs Eosinophils 0.1 10^3/uL N 0-0.6 Abs Basophils 0 10^3/uL N 0-0.2 Abs Nucleated RBC 0 10^3/uL Granulocyte % 65.0 % Lymphocyte % 27.2 % Monocyte % 4.8 % Eosinophil % 2.6 % Basophil % 0.4 % Nucleated Red Blood Cells % 0 Comp Metabolic Panel 07/15/2018 [facility] Sodium 142 mmol/L N 135-[address] [place] [address] [phone] Potassium 3.9 mmol/L N 3.5-5.0 Chloride 107 mmol/L N 101-111 Co2 Carbon Dioxide 31 mmol/L N 22-32 Anion Gap 4 mmol/L N 2-11 Glucose 92 mg/dL N 70-100 Blood Urea Nitrogen 18 mg/dL N 6-24 Creatinine 0.76 mg/dL N 0.51-0.95 BUN/Creatinine Ratio 23.7 High 8-20 Calcium 8.7 mg/dL N 8.6-10.3 Total Protein 5.7 g/dL Low 6.4-8.9 Albumin 3.7 g/dL N 3.2-5.2 Globulin 2.0 g/dL N 2-4 Albumin/Globulin Ratio 1.9 N 1-3 Total Bilirubin 0.50 mg/dL N 0.2-1.0 Alkaline Phosphatase 61 U/L N 34-104 Alt 7 U/L N 7-52 Ast 12 U/L Low 13-39 Egfr Non- 77.1 >60 Egfr 93.3 >60 1 Laboratory test 07/15/2018 [facility] Magnesium 2.0 mg/dL N 1.9-2.[address] [place] [address] [phone] Troponin-I (TnI) 0.00 ng/mL <0.04 2 Laboratory test 07/15/2018 [facility] Valproic Acid 37.0 Low 50-100 3, [address] (Depakene) g/[place] [address] [phone] Laboratory test 05/21/2018 [facility] Valproic Acid 37.0 Low 50-[address] (Depakene) g/[place] [address] [phone] Levetiracetam (Keppra) 52.1 g/mL Abnormal 5 Basic Metabolic Panel 05/21/2018 [facility] Sodium 145 mmol/L N 135-[address] [place] [address] [phone] Potassium 3.3 mmol/L Low 3.5-5.0 Chloride 108 mmol/L N 101-111 Co2 Carbon Dioxide 31 mmol/L N 22-32 Anion Gap 6 mmol/L N 2-11 Glucose 84 mg/dL N 70-100 Blood Urea Nitrogen 23 mg/dL N 6-24 Creatinine 0.81 mg/dL N 0.51-0.95 BUN/Creatinine Ratio 28.4 High 8-20 Calcium 9.3 mg/dL N 8.6-10.3 Egfr Non- 71.6 >60 Egfr 86.7 >60 6 Laboratory 04/29/2018 [facility] Valproic Acid 47.0 Low 50- 100 7, 8 test finding [address] (Depakene) g/[place] [address] [phone] CBC Auto Diff 04/08/2018 [facility] White Blood 5.3 N 3.5- 10.[address] Count 10^3/[place] [address] [phone] Red Blood Count 4.27 10^6/uL N 4.00-5.40 Hemoglobin 13.0 g/dL N 12.0-16.0 Hematocrit 39 % N 35-47 Mean Corpuscular Volume 91 fL N 80-97 Mean Corpuscular Hemoglobin 30 pg N 27-31 Mean Corpuscular HGB Conc 33 g/dL N 31-36 Red Cell Distribution Width 13 % N 10.5-15 Platelet Count 161 10^3/uL N 150-450 Mean Platelet Volume 9.6 fL N 7.4-10.4 Abs Neutrophils 2.5 10^3/uL N 1.5-7.7 Abs Lymphocytes 2.4 10^3/uL N 1.0-4.8 Abs Monocytes 0.3 10^3/uL N 0-0.8 Abs Eosinophils 0.2 10^3/uL N 0-0.6 Abs Basophils 0 10^3/uL N 0-0.2 Abs Nucleated RBC 0 10^3/uL Granulocyte % 46.1 % Lymphocyte % 45.0 % Monocyte % 5.3 % Eosinophil % 3.1 % Basophil % 0.5 % Nucleated Red Blood Cells % 0.1 Comp Metabolic Panel 04/08/2018 [facility] Sodium 143 mmol/L N 135-[address] [place] [address] [phone] Potassium 4.0 mmol/L N 3.5-5.0 Chloride 106 mmol/L N 101-111 Co2 Carbon Dioxide 32 mmol/L N 22-32 Anion Gap 5 mmol/L N 2-11 Glucose 90 mg/dL N 70-100 Blood Urea Nitrogen 19 mg/dL N 6-24 Creatinine 0.87 mg/dL N 0.51-0.95 BUN/Creatinine Ratio 21.8 High 8-20 Calcium 9.4 mg/dL N 8.6-10.3 Total Protein 5.8 g/dL Low 6.4-8.9 Albumin 3.7 g/dL N 3.2-5.2 Globulin 2.1 g/dL N 2-4 Albumin/Globulin Ratio 1.8 N 1-3 Total Bilirubin 0.40 mg/dL N 0.2-1.0 Alkaline Phosphatase 73 U/L N 34-104 Alt 7 U/L N 7-52 Ast 12 U/L Low 13-39 Egfr Non- 66.0 >60 Egfr 79.8 >60 10 Laboratory test 04/08/2018 [facility] Valproic Acid 40.0 g/mL Low 50-[address] (Depakene) [place] [address] [phone] TSH (Thyroid Stim Horm) 1.68 mcIU/mL N 0.34-5.60 12 Levetiracetam (Keppra) 41.8 g/mL 13 CBC Auto Diff 02/13/2018 [facility] White Blood 5.6 10^3/uL N 3.5-10.[address] [place] [address] [phone] Red Blood Count 3.96 10^6/uL Low 4.00-5.40 Hemoglobin 12.1 g/dL N 12.0-16.0 Hematocrit 36 % N 35-47 Mean Corpuscular Volume 91 fL N 80-97 Mean Corpuscular Hemoglobin 31 pg N 27-31 Mean Corpuscular HGB Conc 33 g/dL N 31-36 Red Cell Distribution Width 14 % N 10.5-15 Platelet Count 151 10^3/uL N 150-450 Mean Platelet Volume 8.9 fL N 7.4-10.4 Abs Neutrophils 2.7 10^3/uL N 1.5-7.7 Abs Lymphocytes 2.5 10^3/uL N 1.0-4.8 Abs Monocytes 0.3 10^3/uL N 0-0.8 Abs Eosinophils 0.1 10^3/uL N 0-0.6 Abs Basophils 0 10^3/uL N 0-0.2 Abs Nucleated RBC 0 10^3/uL Granulocyte % 48.2 % N 38-83 Lymphocyte % 43.7 % N 25-47 Monocyte % 5.2 % N 0-7 Eosinophil % 2.5 % N 0-6 Basophil % 0.4 % N 0-2 Nucleated Red Blood Cells % 0.2 Comp Metabolic Panel 02/13/2018 [facility] Sodium 143 mmol/L N 135-[address] [place] [address] [phone] Potassium 3.9 mmol/L N 3.5-5.0 Chloride 109 mmol/L N 101-111 Co2 Carbon Dioxide 33 mmol/L High 22-32 Anion Gap 1 mmol/L Low 2-11 Glucose 97 mg/dL N 70-100 Blood Urea Nitrogen 19 mg/dL N 6-24 Creatinine 0.70 mg/dL N 0.51-0.95 BUN/Creatinine Ratio 27.1 High 8-20 Calcium 9.0 mg/dL N 8.6-10.3 Total Protein 5.6 g/dL Low 6.4-8.9 Albumin 3.7 g/dL N 3.2-5.2 Globulin 1.9 g/dL Low 2-4 Albumin/Globulin Ratio 1.9 N 1-3 Total Bilirubin 0.30 mg/dL N 0.2-1.0 Alkaline Phosphatase 78 U/L N 34-104 Alt 6 U/L Low 7-52 Ast 10 U/L Low 13-39 Egfr Non- 84.8 >60 Egfr 102.6 >60 15 Laboratory test 02/13/2018 [facility] Levetiracetam 49.2 Abnormal [address] (Keppra) g/[place] [address] [phone] 1 Because ethnic data is not always readily available, this report includes an eGFR for both -Americans and non- Americans. The National Kidney Disease Education Program (NKDEP) does not endorse the use of the MDRD equation for patients that are not between the ages of 18 and 70, are , have extremes of body size, muscle mass, or nutritional status, or are non- or non-. According to the National Kidney Foundation, irrespective of diagnosis, the stage of the disease is based on the level of kidney function: Stage Description GFR(mL/min/1.73 m(2)) 1 Kidney damage with normal or decreased GFR 90 2 Kidney damage with mild decrease in GFR 60-89 3 Moderate decrease in GFR 30-59 4 Severe decrease in GFR 15-29 5 Kidney failure <15 (or dialysis) 2 Troponin-I testing on Plasma Separator Tubes (PST) has a known false positive rate of 0.20-0.40%. All positive troponins reflex immediately to secondary confirmatory testing. Using the [employer] 800 Access Immunoassay systems, the 99th percentile upper reference limit was demonstrated to be < 0.03 ng/mL. 3 [id number] [facility], Room Number 312D 4 [id number] [facility], Room Number 312D 5 REFERENCE VALUE 12.0 - 46.0 ADDITIONAL INFORMATION This test was developed and its performance characteristics determined by [facility] in a manner consistent with CLIA requirements. This test has not been cleared or approved by the U.S. Food and Drug Administration. Test Performed by: [facility] [address] [place] [address] 6 Because ethnic data is not always readily available, this report includes an eGFR for both -Americans and non- Americans. The National Kidney Disease Education Program (NKDEP) does not endorse the use of the MDRD equation for patients that are not between the ages of 18 and 70, are , have extremes of body size, muscle mass, or nutritional status, or are non- or non-. According to the National Kidney Foundation, irrespective of diagnosis, the stage of the disease is based on the level of kidney function: Stage Description GFR(mL/min/1.73 m(2)) 1 Kidney damage with normal or decreased GFR 90 2 Kidney damage with mild decrease in GFR 60-89 3 Moderate decrease in GFR 30-59 4 Severe decrease in GFR 15-29 5 Kidney failure <15 (or dialysis) 7 [facility], Room Number [312D [id number] [facility], Room Number [312D [id number] 9 [facility], Room Number 312D [id number] 10 Because ethnic data is not always readily available, this report includes an eGFR for both -Americans and non- Americans. The National Kidney Disease Education Program (NKDEP) does not endorse the use of the MDRD equation for patients that are not between the ages of 18 and 70, are , have extremes of body size, muscle mass, or nutritional status, or are non- or non-. According to the National Kidney Foundation, irrespective of diagnosis, the stage of the disease is based on the level of kidney function: Stage Description GFR(mL/min/1.73 m(2)) 1 Kidney damage with normal or decreased GFR 90 2 Kidney damage with mild decrease in GFR 60-89 3 Moderate decrease in GFR 30-59 4 Severe decrease in GFR 15-29 5 Kidney failure <15 (or dialysis) 11 [facility], Room Number 312D [id number] [facility], Room Number 312D [id number] REFERENCE VALUE 12.0 - 46.0 ADDITIONAL INFORMATION This test was developed and its performance characteristics determined by [facility] in a manner consistent with CLIA requirements. This test has not been cleared or approved by the U.S. Food and Drug Administration. Test Performed by: [facility] [place] [id number] [place] [address] 14 [facility], Room Number 312D [id number] 15 Because ethnic data is not always readily available, this report includes an eGFR for both -Americans and non- Americans. The National Kidney Disease Education Program (NKDEP) does not endorse the use of the MDRD equation for patients that are not between the ages of 18 and 70, are , have extremes of body size, muscle mass, or nutritional status, or are non- or non-. According to the National Kidney Foundation, irrespective of diagnosis, the stage of the disease is based on the level of kidney function: Stage Description GFR(mL/min/1.73 m(2)) 1 Kidney damage with normal or decreased GFR 90 2 Kidney damage with mild decrease in GFR 60-89 3 Moderate decrease in GFR 30-59 4 Severe decrease in GFR 15-29 5 Kidney failure <15 (or dialysis) 16 REFERENCE VALUE 12.0 - 46.0 ADDITIONAL INFORMATION This test was developed and its performance characteristics determined by [facility] in a manner consistent with CLIA requirements. This test has not been cleared or approved by the U.S. Food and Drug Administration. Test Performed by: [facility] [address] [place] [address] Encounters Type Date Location Provider Dx Diagnosis Office Visit 09/24/2018 [facility], S32.89xD Fracture of oth 10:30a Kael ANDERSEN parts of pelvis, subs for fx w routn heal Office Visit 08/26/2018 [facility] G40.909 Epilepsy, unsp, 11:00a [facility] Cardona, N[facility] not intractable, without status epilepticus G31.09 Other frontotemporal dementia Office Visit 06/19/2018 10:00a [facility] G40.909 Epilepsy, unsp , not Harjinder, D.O. intractable, without status epilepticus G31.09 Other frontotemporal dementia F31.4 Bipolar disord, crnt epsd depress, sev, w/o psych features I10 Essential (primary) hypertension R63.4 Abnormal weight loss Z66 Do not resuscitate Office Visit 04/26/2018 9:00a [facility] G40.909 Epilepsy, unsp , not Harjinder, D.O. intractable, without status epilepticus G31.09 Other frontotemporal dementia F31.4 Bipolar disord, crnt epsd depress, sev, w/o psych features S42.031D Disp fx of lateral end r clavicle, subs for fx w routn heal I10 Essential (primary) hypertension R63.4 Abnormal weight loss Z66 Do not resuscitate Office Visit 04/05/2018 8:45a [facility] G40.909 Epilepsy, unsp, MD Elly not intractable, without status epilepticus G31.09 Other frontotemporal dementia Office Visit 02/28/2018 8:30a [facility] [place] F31.4 Bipolar disord, MAGUE Ray crnt epsd depress, sev, w/o psych features G40.909 Epilepsy, unsp, not intractable, without status epilepticus G31.09 Other frontotemporal dementia S42.031D Disp fx of lateral end r clavicle, subs for fx w routn heal I10 Essential (primary) hypertension R63.4 Abnormal weight loss Z66 Do not resuscitate Office Visit 02/21/2018 [facility] Nito Tol[place], G31.09 Other frontotemporal 1:30p [facility] S42.031D Disp fx of lateral end r clavicle, subs for fx w routn heal Office Visit 02/08/2018 Colin Beni G31.09 Other 1:00p Neurolog[facility] Neena Chaney frontotemporal Services [facility] dementia G40.909 Epilepsy, unsp, not intractable, without status epilepticus Office Visit 01/31/2018 [facility] Nito Toledo MD S42.031A Disp fx of 2:45p Services Of lateral end of C.M.A. right clavicle, init for clos fx Office Visit 01/24/2018 [facility] [place] M25.511 Pain in right 8:00a MAGUE Ray shoulder S42.009A Fracture of unsp part of unsp clavicle, init for clos fx Z66 Do not resuscitate Office Visit 01/22/2018 8:30a [facility] [place] S00.03xA Contusion of MAGUE Ray scalp, initial encounter R56.9 Unspecified convulsions R51 Headache Z66 Do not resuscitate W19.xxxA Unspecified fall, initial encounter Office Visit 12/25/2017 10:30a [facility] Denis Sanabria, F02.80 Dementia in oth MD diseases classd elswhr w/o behavrl disturb G31.09 Other frontotemporal dementia G40.909 Epilepsy, unsp, not intractable, without status epilepticus I10 Essential (primary) hypertension E03.9 Hypothyroidism, unspecified Office Visit 10/12/2017 10:30a [facility] F03.91 Unspecified MD Elly dementia with behavioral disturbance G40.909 Epilepsy, unsp, not intractable, without status epilepticus Office Visit 10/01/2017 11:00a [facility] Cony Skaggs, F31.4 Bipolar disord, [employer]IVATE [employer] crnt epsd depress, sev, w/o psych features F03.91 Unspecified dementia with behavioral disturbance G40.909 Epilepsy, unsp, not intractable, without status epilepticus G31.09 Other frontotemporal dementia Z66 Do not resuscitate Office Visit 09/19/2017 1:30p [facility] Cony Skaggs, F03.91 Unspecified PRIVATE ADVISOR dementia with behavioral disturbance R41.82 Altered mental status, unspecified Office Visit 08/24/2017 12:00p [facility] Elly, F31.4 Darlene stevens MD crnt epsd depress, sev, w/o psych features G40.909 Epilepsy, unsp, not intractable, without status epilepticus F03.91 Unspecified dementia with behavioral disturbance Office Visit 07/24/2017 9:45a [facility] Cony Skaggs, G40.909 Epilepsy, unsp, [employer]IVATE ADVISOR not intractable, without status epilepticus G31.09 Other frontotemporal dementia Office Visit 07/06/2017 9:30a [facility] G31.09 Other frontotemporal MD Elly dementia F03.91 Unspecified dementia with behavioral disturbance G40.909 Epilepsy, unsp, not intractable, without status epilepticus E03.9 Hypothyroidism, unspecified Office Visit 06/06/2017 8:45a [facility] G31.09 Other frontotemporal Sharifa, PRIVATE ADVISOR dementia F03.91 Unspecified dementia with behavioral disturbance F31.4 Bipolar disord, crnt epsd depress, sev, w/o psych features G40.909 Epilepsy, unsp, not intractable, without status epilepticus Office Visit 05/19/2017 11:30a [facility] [place], R56.9 Unspecified D.O. convulsions F03.91 Unspecified dementia with behavioral disturbance F31.4 Bipolar disord, crnt epsd depress, sev, w/o psych features Office Visit 05/07/2017 10:45a [facility] [place], F03.91 Unspecified [employer] ADVISOR dementia with behavioral disturbance F31.4 Bipolar disord, crnt epsd depress, sev, w/o psych features F22 Delusional disorders I10 Essential (primary) hypertension Office Visit 03/04/2017 8:15a [facility] [place], F03.91 Unspecified D.O. dementia with behavioral disturbance F31.4 Bipolar disord, crnt epsd depress, sev, w/o psych features R56.9 Unspecified convulsions F22 Delusional disorders Office Visit 01/10/2017 11:00a [facility] [place], F31.9 Bipolar disorder, [employer]OR unspecified F02.80 Dementia in oth diseases classd elswhr w/o behavrl disturb G40.909 Epilepsy, unsp, not intractable, without status epilepticus E03.9 Hypothyroidism, unspecified Office Visit 12/18/2016 11:15a [facility] Eliz Corin, F31.9 Bipolar disorder, DO unspecified F02.81 Dementia in oth diseases classd elswhr w behavioral disturb I10 Essential (primary) hypertension Office Visit 05/24/2015 7:39a [facility] Faiza Albino, R53.83 Other fatigue Assoc, PRIVATE ADVISOR Hospitalists G31.09 Other frontotemporal dementia G40.909 Epilepsy, unsp, not intractable, without status epilepticus 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 Shoulder Region Office Visit 10/19/2014 1:00p Elias Viramontes 719.41 [facility] M.D[facility] Shoulder Region 812.03 FX Humerus Greater Tuberosity Closed 812.01 FX Humerus Surgical Neck Closed Plan of Treatment Future Appointment(s):10/17/2018 10:45 am - Nito Toledo MD at [facility]12/09/2018 11:45 am - Beni Chaney M.D. at [facility]09/24/2018 - Nito Toledo, MDS32.89xD Fracture of other parts of pelvis, subsequent encounter forFollow up:Follow up: 3 weeks
--- NOTE | 2018-10-02 02:38 | ED ---
Lower Extremity - HPI Summary HPI Summary: LEVEL 5 CAVEAT: HPI is limited because patient has hx dementia Patient is a 63 y old F brought in by EMS from correction with a chief complaint of right proximal lateral lower extremity ecchymosis and abrasion since nursing staff found patient on her knees after an unwitnessed fall. Symptoms aggravated by nothing. Symptoms alleviated by nothing. PMHx of dementia. - History of Current Complaint Chief Complaint: EDFall Stated Complaint: HIP PAIN PER EMS Time Seen by Provider: 10/02/18 01:41 Hx Obtained From: Other: - correction staff Hx From Patient Unobtainable Due To: Dementia Hx Last Menstrual Period: Menopausal Mechanism Of Injury: Other - unwitnessed fall Aggravating Factor(s): Nothing Alleviating Factor(s): Nothing - Allergies/Home Medications Allergies/Adverse Reactions: Allergies Allergy/AdvReac Type Severity Reaction Status Date / Time saleh Allergy Unknown Verified 07/24/17 09:20 Reaction Details Egg Derived Allergy Unknown Verified 07/24/17 09:20 Reaction Details milk Allergy Unknown Verified 07/24/17 09:20 Reaction Details PMH/Surg Hx/FS Hx/Imm Hx Previously Healthy: No Sensory History: Reports: Hx Contacts or Glasses - AT [facility] Opthamlomology History: Reports: Hx Contacts or Glasses - AT [facility] Neurological History: Reports: Hx Dementia, Hx Seizures, Other Neuro Impairments /Disorders - Intellectual disability Psychiatric History: Reports: Hx Anxiety, Hx Depression, Hx of Violent Episodes Against Others - Can be combative post seizures - Surgical History Surgical History: Unable to Obtain/Confirm - Level 5 Caveat Surgery Procedure, Year, and Place: Unknown due to pt having dementia Infectious Disease History: No Infectious Disease History: Denies: Traveled Outside the [place] in Last 30 Days - Family History Known Family History: Positive: Unknown - Level 5 caveat - dementia - Social History [facility]: [facility] Alcohol Use: None Hx Substance Use: No Substance Use Type: Reports: None Hx Tobacco Use: No Smoking Status (MU): Never Smoked Tobacco Have You Smoked in the Last Year: No Review of Systems - ROS Summary Review of Systems Summary: LEVEL 5 CAVEAT: ROS is limited because patient has dementia Positive: Bruising - RLE, Other - Abrasion All Other Systems Reviewed And Are Negative: No Physical Exam - Summary Physical Exam Summary: Appearance: Well-appearing, Well-nourished, lying in bed comfortably Skin: Warm, dry, no obvious rash Eyes: sclera anicteric, no conjunctival pallor ENT: mucous membranes moist Neck: deferred Respiratory: No signs of respiratory distress Cardiovascular: Appears well perfused, pulses are nml Abdomen: deferred Musculoskeletal: Moving all 4 extremities without obvious discomfort, right proximal lateral leg with bruise and small abrasion Neurological: No external signs of head trauma, Confused which is said to be baseline Psychiatric: affect is normal, does not appear anxious or depressed Triage Information Reviewed: Yes Vital Signs On Initial Exam: Initial Vitals Temp Pulse Resp BP Pulse Ox 98.7 F 80 14 134/65 97 10/02/18 01:17 10/02/18 01:17 10/02/18 01:17 10/02/18 01:10/02/18 01:17 Vital Signs Reviewed: Yes Diagnostics - Vital Signs Vital Signs Temp Pulse Resp BP Pulse Ox 10/02/18 01:17 98.7 F 80 14 134/65 97 - Laboratory Lab Statement: Any lab studies that have been ordered have been reviewed, and results considered in the medical decision making process. Lower Extremity Course/Dx - Course Course Of Treatment: Patient is a 63 y old F brought in by EMS from correction with a chief complaint of right proximal lateral lower extremity ecchymosis and abrasion since nursing staff found patient on her knees after an unwitnessed fall. PMHx of dementia. Physical exam reveals right proximal lateral leg with bruise and small abrasion, no external signs of head trauma, and confused which is said to be baseline. Patient does not have any major injuries upon exam. Therefore, no imaging studies were done. In the ED course the patient was observed. Patient had no complaints. Patient will be discharged to the correction. The patient is agreeable with this plan. - Diagnoses Provider Diagnoses: Fall, Contusion of right leg Discharge - Sign-Out/Discharge Documenting (check all that apply): Patient Departure - discharge Patient Received Moderate/Deep Sedation with Procedure: No - Discharge Plan Condition: Good Disposition: HOME Patient Education Materials: Fall Prevention for Older Adults (ED) Referrals: No Primary Care Phys,NOPCP [Primary Care Provider] - Additional Instructions: Ms. Tracy does not have anything on her exam to suggest a major injury, just a small bruise on the right leg. I do not believe she requires any lab studies or imaging at this time. - Billing Disposition and Condition Condition: GOOD Disposition: Home - Attestation Statements Document Initiated by Luis: Yes Documenting Scribe: Samantha Vilchis Provider For Whom Luis is Documenting (Include Credential): Sterling Rea MD Scribe Attestation: Jeanine Singh Alison Kim, scribed for Sterling Rea MD on 10/03/18 at 0448. Scribe Documentation Reviewed: Yes Provider Attestation: The documentation as recorded by the rogelioibmario, Samantha Vilchis accurately reflects the service I personally performed and the decisions made by Sterling joshi MD Status of Scribe Document: Viewed
[2018-10-02 05:26] VITALS: BP 113/74
== END 2018-10-02 04:00 | disposition home or self-care (01) ==
LOC: ED 01:11
DX: S80.11XA Contusion of right lower leg, initial encounter (principal); W19.XXXA Unspecified fall, initial encounter; Y92.129 Unspecified place in nursing home as the place of occurrence of the external cause; F03.90 Unspecified dementia, unspecified severity, without behavioral disturbance, psychotic disturbance, mood disturbance, and anxiety
CPT/HCPCS: 99283

== ENCOUNTER 2018-12-19 17:33 | Emergency (ER) | payer MEDICARE, MEDICAID ==
[2018-12-19] MEDS: NS 0.9% 1000 ML** 1,000 ML IV.FLUID IV ONE ×2 (17:45→18:14)
[2018-12-19] MEDS ORDERED: NS 0.9% 1000 ML** 1,000 ML IV.FLUID IV ONE (17:58)
--- NOTE | 2018-12-19 18:07 | ED ---
Altered Mental Status - HPI Summary HPI Summary: 63 year old female presents with AMS for past 3 days. was sent in because she is anuria with diminished breath sounds and guarding right hip. She normally is pretty and nonverbal now and is only responding to pain. She may have had a fever. No cough. She is not voicing anything at this time. She has a history of dementia and seizures. Level 5 caveat due to altered mental status. - History Of Current Complaint Chief Complaint: EDAltMentalStatus Stated Complaint: CHANGE IN MENTAL STATUS PER PT Time Seen by Provider: 12/19/18 17:55 Hx Last Menstrual Period: Menopausal - Allergies/Home Medications Allergies/Adverse Reactions: Allergies Allergy/AdvReac Type Severity Reaction Status Date / Time saleh Allergy Unknown Verified 12/19/18 18:28 Reaction Details Egg Derived Allergy Unknown Verified 12/19/18 18:28 Reaction Details milk Allergy Unknown Verified 12/19/18 18:28 Reaction Details Home Medications: Home Medications Acetaminophen [Acetaminophen Extra Strength] 1,000 mg PO Q6HR PRN 12/19/18 [ History Confirmed 12/19/18] Bisacodyl SUPP* [Dulcolax Supp*] 10 mg [place] DAILY PRN 12/19/18 [History Confirmed 12/19/18] Calcium Carbonate [Calcium] 1,000 mg PO DAILY 12/19/18 [History Confirmed ] Nystatin CREAM* [Nystatin Cream*] 1 applic TOPICAL BID 12/19/18 [History Confirmed 12/19/18] PMH/Surg Hx/FS Hx/Imm Hx Endocrine/Hematology History: Denies: Hx Anticoagulant Therapy Sensory History: Reports: Hx Contacts or Glasses - AT [facility] Opthamlomology History: Reports: Hx Contacts or Glasses - AT [facility] Neurological History: Reports: Hx Dementia, Hx Seizures, Other Neuro Impairments /Disorders - Intellectual disability Psychiatric History: Reports: Hx Anxiety, Hx Depression, Hx of Violent Episodes Against Others - Can be combative post seizures - Surgical History Surgery Procedure, Year, and Place: Unknown due to pt having dementia Infectious Disease History: No Infectious Disease History: Denies: Traveled Outside the US in Last 30 Days - Family History Known Family History: Positive: Unknown - Level 5 caveat - dementia - Social History Alcohol Use: None Hx Substance Use: No Substance Use Type: Reports: None Hx Tobacco Use: No Smoking Status (MU): Never Smoked Tobacco Have You Smoked in the Last Year: No Review of Systems Positive: Fever Positive: Shortness Of Breath Neurological: Other - ams All Other Systems Reviewed And Are Negative: Yes Physical Exam Triage Information Reviewed: Yes Vital Signs On Initial Exam: Initial Vitals Temp Pulse Resp BP Pulse Ox 98.6 F 106 22 139/98 93 12/19/18 17:37 12/19/18 17:37 12/19/18 17:37 12/19/18 17:37 12/19/18 17:37 Vital Signs Reviewed: Yes Completion Of Physical Exam Limited Due To: Altered Mental Status Appearance: Positive: Ill-Appearing Skin: Positive: Warm, Dry Head/Face: Positive: Normal Head/Face Inspection Eyes: Positive: EOMI, CRUZ, Conjunctiva Clear ENT: Positive: Pharynx normal, TMs normal, Other - appears dry mucous membranes Neck: Positive: Supple, Nontender, No Lymphadenopathy Respiratory/Lung Sounds: Positive: Clear to Auscultation, Decreased Breath Sounds Cardiovascular: Positive: Normal, RRR Abdomen Description: Positive: Nontender, Soft Bowel Sounds: Positive: Present Musculoskeletal: Positive: Other - tenderness right hip Neurological: Negative: Alert, Oriented to Person Place, Time - [place] Coma Scale Best Eye Response: 4 - Spontaneous Best Motor Response: 4 - Withdraws Best Verbal Response: 2 - Incomprehensible Words Coma Scale Total: 10 Diagnostics - Vital Signs Vital Signs Temp Pulse Resp BP Pulse Ox 12/19/18 17:37 98.6 F 106 22 139/98 93 - Laboratory Result Diagrams: 12/19/18 18:00 12/19/18 18:00 Lab Statement: Any lab studies that have been ordered have been reviewed, and results considered in the medical decision making process. - Radiology chest Radiology Interpretation Completed By: ED Physician Summary of Radiographic Findings: no active disease - EKG No standard instances Cardiac Rate: Tachycardia EKG Rhythm: Sinus Tachycardia EKG Comparison: No Significant Change Summary of EKG Findings: sinus tachycardia Re-Evaluation - Re-Evaluation First Eval Change: Improved Comment: is more talkative Second Eval Re-Evaluation Time: 23:23 Change: Unchanged Comment: same mental status after fluids, is talking in room and vitals stable but does not want po intake Altered Mental Statu Course/Dx - Course Course Of Treatment: 63 year old female presents with AMS for past 3 days. was sent in because she is anuria with diminished breath sounds and guarding right hip. She normally is pretty and nonverbal now and is only responding to pain. She may have had a fever. No cough. She is not voicing anything at this time. She has a history of dementia and seizures. Level 5 caveat due to altered mental status. On exam patient is only responding to pain initially. Mucous membranes dry. Lungs diminished breath sounds noted. Heart regular rate and rhythm. Abdomen soft nontender. Pain with movement right hip. Gave fluids and patient started responding. Patient started saying yes no. States yes when you asked that she has right hip pain. wbc only slightly elevated. CRP elevated. Urine shows potential UTI. Gave dose of Zosyn. Chest x-ray normal. CT brain normal. CT abdomen and pelvis shows possibly acute left pelvis fractures. Discuss case Dr. Grande who states patient is almost back to her baseline and to give another liter of fluid and can discharge. Gave another dose fluids and we'll discharge with Keflex for uti. dr grande was reconsulted bc patient would not take oral hydration and she states that they can place an IV if needed at [facility]. - Diagnoses Differential Diagnosis/HQI/PQRI: Intracranial Bleed, Metabolic Disorder, Postictal State, Sepsis Provider Diagnoses: Altered mental status, Dehydration, UTI (urinary tract infection), Fracture of left pelvis Discharge ED - Sign-Out/Discharge Documenting (check all that apply): Patient Departure Patient Received Moderate/Deep Sedation with Procedure: No - Discharge Plan Condition: Good Disposition: HOME Prescriptions: Cephalexin CAP* [Keflex CAP*] 500 mg PO BID #10 cap Patient Education Materials: Urinary Tract Infection in Women (ED) Referrals: Tierra Grande DO [Primary Care Provider] - Additional Instructions: take keflex twice a day for 5 days Follow up with primary within 5 days encourage fluids Return to ED if develop any new or worsening symptoms - Billing Disposition and Condition Condition: GOOD Disposition: Home
[2018-12-19 18:17] LABS: ABS Lymphocytes 1.8 10^3/ul (1.0-4.8); ABS Monocytes 0.8 10^3/ul (0-0.8); ABS Neutrophils 9.2 10^3/ul (1.5-7.7); Eosinophil % 0.4 %; Hematocrit 40 % (35-47); Hemoglobin 13.4 g/dL (12.0-16.0); Lymphocyte % 15.4 %; Mean Corpuscular HGB Conc 33 g/dL (31-36); Mean Corpuscular Hemoglobin 31 pg (27-31); Mean Corpuscular Volume 95 fL (80-97); Mean Platelet Volume 8.6 fL (7.4-10.4); Nucleated Red Blood Cells % 0.1; Platelet Count 231 10^3/uL (150-450); Red Blood Count 4.28 10^6 /uL (3.70-4.87); Red Cell Distribution Width 13 % (10-15); White Blood Count 11.9 10^3/uL (3.5-10.8)
[2018-12-19 18:31] LABS: Activated Partial Thrombo Time 33.8 seconds (26.0-38.0); INR 1.18 (0.82-1.09)
[2018-12-19 18:33] LABS: Albumin 3.5 g/dL (3.2-5.2); Albumin/Globulin Ratio 1.2 (1-3); Calcium 9.2 mg/dL (8.6-10.3); EGFR African American 144.6 (>60); EGFR Non-African American 119.5 (>60); Globulin 2.9 g/dL (2-4); Potassium 3.6 mmol/L (3.5-5.0); Total Bilirubin 0.5 mg/dL (0.2-1.0); Total Protein 6.4 g/dL (6.4-8.9)
[2018-12-19 18:35] LABS: Troponin I 0.01 ng/mL (<0.04)
[2018-12-19 18:36] LABS: Urine Appearance Clear; Urine Bacteria Absent (Absent); Urine Bilirubin Negative (Negative); Urine Blood Negative (Negative); Urine Color Amber; Urine Glucose Negative (Negative); Urine Ketones 1+ (Negative); Urine Nitrite Negative (Negative); Urine Protein 2+(100 mg/dL) (Negative); Urine Red Blood Cell 1+(3-5/hpf) (Absent); Urine Specific Gravity 1.031 (1.010-1.030); Urine Squamous Epithelial Cell Present (Absent); Urine Urobilinogen Negative (Negative); Urine White Blood Cell 1+(6-10/hpf) (Absent)
--- OUTSIDE RECORDS SUMMARY | 2018-12-19 18:52 | XMS REPORT | Continuity of Care Document ---
:1955 External Reference #:[id number] Author Name Beni Chaney M.D. 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 Onset: 10/19/2014 Closed fracture proximal humerus, greater Jermain Wander Calloway M.D. Onset: 10/19 tuberosity Closed fracture [...] 07/18/2017 Dementia Cony Skaggs NP Onset: 07/18/2017 Kalyani Coombs DO Onset: 07/18/2017 Malaise and fatigue Faiza Posada NP Onset: 07/18/2017 Psychotic disorder Faiza Posada NP Onset: 07/18/2017 Closed fracture of acromial end of clavicle Nito Toledo MD Onset: 2017 Fracture of other parts of pelvis, Nito Toledo MD Onset: 09/24/2018 subsequent encounter for fracture with routine healing Unspecified fracture of left pubis, Nito Tloedo MD Onset: 12/03/2018 subsequent encounter for fracture with routine healing Social History Type Date Description Comments Sex Unknown ETOH Use Denies alcohol use Tobacco Use Start: Unknown Patient has never smoked Smoking Status Reviewed: 12/09/18 Patient has never smoked Exercise Type/Frequency Does not exercise Allergies, Adverse Reactions, Alerts Description No Known Drug Allergies Medications Active Medications SIG Qnty Indications Ordering Date Provider Calcium 500 + D 1 by mouth every 180tabs Nito Toledo, 12/03/2018 day [id number] Tablets Milk Of Magnesia Take 30 mls by [facility] 08/23/2017 mouth every 24 MAGUE Skaggs 400mg/5ML Suspension hours as needed for constipation Lactobacillus 1 PO bid 30tabs [facility] 07/18/2017 TouchMAGUE price Tablets Loperamide HCL take one capsule by 100caps [facility] 07/18/2017 2mg mouth every 4 hours TouchMAGUE price Capsules as needed Quetiapine Fumarate 1 tab PO tid 30tabs F03.91 [facility] 07/18/2017 MAGUE Skaggs 100mg Tablets Lactase Enzyme Take 1 tablet by [facility] 06/07/2017 mouth every 6 hours TouchMAGUE price 3000Unit Tablets as needed for lactose intolerance Celexa 1 by mouth every F31.4 Harjinder, 20mg Tablets day Tierra, DO Vitamin D3 one by mouth once 4caps E55.9 Harjinder, [id number] monthly Tierra, DO Capsules Acetaminophen 1 as needed three Unknown 650mg times a day as Suppository needed pain/fever >98 Tolnaftate apply as needed Unknown 1% Powder Depakote Sprinkles take two caps by Unknown mouth at 8am and 125mg CSDR two caps at 4pm Melatonin 1 tab by mouth Unknown 3mg every night at Capsules bedtime Keppra 1000 mcg in the Unknown 100mg/ml morning, 1500 mcg Solution at bedtime Immunizations Description No Information Available Vital Signs Date Vital Result Comment 12/09/2018 11:31am Height 66 inches 5'6" Heart Rate 104 /min BP Systolic 110 mmHg BP Diastolic 78 mmHg 12/03/2018 10:30am Height 66 inches 5'6" Weight 170.00 lb Heart Rate 80 /min BP Systolic Sitting 102 mmHg BP Diastolic Sitting 76 mmHg Body Temperature 97.6 F BMI (Body Mass Index) 27.4 kg/m2 Results Test Date Facility Test Result H/L Range Note Laboratory test 07/15/2018 [facility] Valproic Acid 46.0 g/mL Low 50-[address] (Depakene) [place] [address] [phone] CBC Auto Diff 07/15/2018 [facility] White Blood 4.7 10^3/uL Normal 3.5-10.[address] [place] [address] [phone] Red Blood Count 3.92 10^6/uL Normal 3.70-4.87 Hemoglobin 12.2 g/dL Normal 12.0-16.0 Hematocrit 36 % Normal 33-41 Mean Corpuscular Volume 92 fL Normal 80-97 Mean Corpuscular Hemoglobin 31 pg Normal 27-31 Mean Corpuscular HGB Conc 34 g/dL Normal 31-36 Red Cell Distribution Width 14 % Normal 10.5-15 Platelet Count 121 10^3/uL Low 150-450 Mean Platelet Volume 9.0 fL Normal 7.4-10.4 Abs Neutrophils 3.1 10^3/uL Normal 1.5-7.7 Abs Lymphocytes 1.3 10^3/uL Normal 1.0-4.8 Abs Monocytes 0.2 10^3/uL Normal 0-0.8 Abs Eosinophils 0.1 10^3/uL Normal 0-0.6 Abs Basophils 0 10^3/uL Normal 0-0.2 Abs Nucleated RBC 0 10^3/uL Granulocyte % 65.0 % Lymphocyte % 27.2 % Monocyte % 4.8 % Eosinophil % 2.6 % Basophil % 0.4 % Nucleated Red Blood Cells % 0 Comp Metabolic 07/15/2018 [facility] Sodium 142 mmol/L Normal 135-[address] [place] [address] [phone] Potassium 3.9 mmol/L Normal 3.5-5.0 Chloride 107 mmol/L Normal 101-111 Co2 Carbon Dioxide 31 mmol/L Normal 22-32 Anion Gap 4 mmol/L Normal 2-11 Glucose 92 mg/dL Normal 70-100 Blood Urea Nitrogen 18 mg/dL Normal 6-24 Creatinine 0.76 mg/dL Normal 0.51-0.95 BUN/Creatinine Ratio 23.7 High 8-20 Calcium 8.7 mg/dL Normal 8.6-10.3 Total Protein 5.7 g/dL Low 6.4-8.9 Albumin 3.7 g/dL Normal 3.2-5.2 Globulin 2.0 g/dL Normal 2-4 Albumin/Globulin Ratio 1.9 Normal 1-3 Total Bilirubin 0.50 mg/dL Normal 0.2-1.0 Alkaline Phosphatase 61 U/L Normal 34-104 Alt 7 U/L Normal 7-52 Ast 12 U/L Low 13-39 Egfr Non- 77.1 >60 Egfr 93.3 >60 1 Laboratory test 07/15/2018 [facility] Magnesium 2.0 mg/dL Normal 1.9-2.[address] [place] [address] [phone] Troponin-I (TnI) 0.00 ng/mL <0.04 2 Laboratory test 07/15/2018 [facility] Valproic Acid 37.0 Low 50-100 3, [address] (Depakene) g/[place] [address] [phone] 1 Because ethnic data is not always [...] immediately to secondary confirmatory testing. Using the [employer] DxI 800 Access Immunoassay systems, the 99th percentile upper reference limit was demonstrated to be < 0.03 ng/mL. 3 [id number] [facility] [address], Room Number 312D 4 [id number] [facility] [address], Room Number 312D Procedures Description No Information Available Medical Devices Description No Information Available Encounters Type Date Location Provider Dx Diagnosis Office Visit 12/09/2018 [facility] Beni Chaney, G40.909 Epilepsy, unsp, 11:45a [facility] not intractable, without status epilepticus G31.09 Other frontotemporal dementia R41.82 Altered mental status, unspecified Office Visit 10/17/2018 11:45a [facility] Tierra Grande, S32.502D Unsp fracture of D.O. left pubis, subs for fx w routn heal G40.909 Epilepsy, unsp, not intractable, without status epilepticus G31.09 Other frontotemporal dementia F31.4 Bipolar disord, crnt epsd depress, sev, w/o psych features I10 Essential (primary) hypertension Z66 Do not resuscitate Office Visit 10/17/2018 [facility] Nito S32.502D Unsp fracture of 10:45a Of Kael Toledo MD left pubis, subs for fx w routn heal Office Visit 09/24/2018 [facility] Nito S32.502A Unsp fracture of 10:30a Of Kael Toledo MD left pubis, init encntr for closed fracture Office Visit 08/26/2018 [facility]so G40.909 Epilepsy, unsp, 11:00a [facility], not intractable, N.P. without status epilepticus G31.09 Other frontotemporal dementia Office Visit 06/19/2018 10:00a [facility] Tierra G40.909 Epilepsy, unsp , not Harjinder, D.O. intractable, without status epilepticus G31.09 Other frontotemporal dementia F31.4 Bipolar disord, crnt epsd depress, sev, w/o psych features I10 Essential (primary) hypertension R63.4 Abnormal weight loss Z66 Do not resuscitate Assessments Date Code Description Provider 12/09/2018 G40.909 Epilepsy, unspecified, not intractable, Beni Chaney M.D. without status epile 12/09/2018 G31.09 Other frontotemporal dementia Beni Chaney M.D. 12/09/2018 R41.82 Altered mental status, unspecified Beni Chaney M.D. 12/03/2018 S32.502D Unspecified fracture of left pubis, Nito Toledo MD subsequent encounter for 10/17/2018 S32.502D Unspecified fracture of left pubis, Tierra Grande D.O. subsequent encounter for 10/17/2018 S32.502D Unspecified fracture of left pubis, Nito Toledo MD subsequent encounter for 10/17/2018 G40.909 Epilepsy, unspecified, not intractable, Tierra Grande D.O. without status epile 10/17/2018 G31.09 Other frontotemporal dementia Tierra Grande D.O. 10/17/2018 F31.4 Bipolar disorder, current episode Bill Melgar.Ryne. depressed, severe, without 10/17/2018 I10 Essential (primary) hypertension Tierra Grande D.O. 10/17/2018 Z66 Do not resuscitate Tierra Grande D.O. 09/24/2018 S32.502A Unspecified fracture of left pubis, Nito Toledo MD initial encounter for closed fracture 08/26/2018 G40.909 Epilepsy, unspecified, not intractable, Celso Cardona, N.P. without status epile 08/26/2018 G31.09 Other frontotemporal dementia Celso Cardona, N.P. 08/16/2018 G40.909 Epilepsy, unspecified, not intractable, SERGEI Alarcon without status epile 08/16/2018 G31.09 Other frontotemporal dementia SERGEI Alarcon 08/16/2018 F31.4 Bipolar disorder, current episode SERGEI Alarcon depressed, severe, without 08/16/2018 I10 Essential (primary) hypertension SERGEI Alarcon 08/16/2018 R63.4 Abnormal weight loss SERGEI Alarcon 08/16/2018 Z66 Do not resuscitate SERGEI Alarcon 06/19/2018 G40.909 Epilepsy, unspecified, not intractable, Tierra Grande D.O. without status epile 06/19/2018 G31.09 Other frontotemporal dementia Tierra Grande D.O. 06/19/2018 F31.4 Bipolar disorder, current episode Tierra Grande D.O. depressed, severe, without 06/19/2018 I10 Essential (primary) hypertension Jason MelgarO. 06/19/2018 R63.4 Abnormal weight loss Tierra Grande D.O. 06/19/2018 Z66 Do not resuscitate Tierra Grande D.O. Plan of Treatment Future Appointment(s):03/07/2019 11:00 am - Celso Cardona N.P. at [facility]12/09/2018 - Beni Chaney M.D.G40.909 Epilepsy, unspecified, not intractable, without status epileFollow up:Follow up in 3 months with LopezG31.09 Other frontotemporal tpthzpytH61.82 Altered mental status , unspecified Functional Status Description No Information Available Mental Status Description No Information Available Referrals Description No Information Available
--- OUTSIDE RECORDS SUMMARY | 2018-12-19 18:52 | XMS REPORT | Continuity of Care Document ---
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 Problems Active Problems Provider Date Shoulder joint [...] healing Unspecified fracture of left pubis, Nito Toledo MD Onset: 12/03/2018 subsequent encounter for fracture with routine healing Social History Type Date Description Comments Sex Unknown ETOH Use Denies alcohol use Tobacco Use Start: Unknown Patient has never smoked Smoking Status Reviewed: 12/03/18 Patient has never smoked Exercise Type/Frequency Does not exercise Allergies, Adverse Reactions, Alerts Description No Known Drug Allergies Medications Active Medications SIG Qnty Indications Ordering Date Provider Calcium 500 + D 1 by mouth every 180tabs Nito Toledo, 12/03/2018 day [id number] Tablets Milk Of Magnesia Take 30 mls by [facility] 08/23/2017 mouth every 24 Touchalbert [employer] 400mg/5ML Suspension hours as needed for constipation Lactobacillus 1 PO bid 30tabs [facility] 07/18/2017 Touchalbert, [employer] SALESPERSON Tablets Loperamide HCL take one capsule by 100caps [facility] 07/18/2017 2mg mouth every 4 hours Touchalbert, [employer] SALESPERSON Capsules as needed Quetiapine Fumarate 1 tab PO tid 30tabs F03.91 [facility] 07/18/2017 Touchalbert [employer] 100mg Tablets Lactase Enzyme Take 1 tablet by [facility] 06/07/2017 mouth every 6 hours Touchalbert, [employer] SALESPERSON 3000Unit Tablets as needed for lactose intolerance Celexa 1 by mouth every F31.4 Harjinder, 20mg Tablets day Tierra, DO Vitamin D3 one by mouth once 4caps E55.9 Harjinder, [id number] monthly Tierra, DO Capsules Acetaminophen 1 as [...] Available Vital Signs Date Vital Result Comment 12/03/2018 10:30am Height 66 inches 5'6" Weight 170.00 lb Heart Rate 80 /min BP Systolic Sitting 102 mmHg BP Diastolic Sitting 76 mmHg Body Temperature 97.6 F BMI (Body Mass Index) 27.4 kg/m2 10/17/2018 11:03am Height 66 inches 5'6" Weight 170.00 lb Heart Rate 72 /min BP Systolic 130 mmHg BP Diastolic 72 mmHg Body Temperature 97.9 F Pain Level 2 BMI (Body Mass Index) 27.4 kg/m2 Results Test Date Facility Test Result H/L Range Note Laboratory test 07/15/2018 [facility] Valproic Acid 46.0 g/mL Low 50-[address] (Depakene) [place] [address] [phone] CBC Auto Diff 07/15/2018 [facility] White Blood 4.7 10^3/uL Normal 3.5-10.[address] [place] [address] [phone] Red Blood Count 3.92 10^6/uL Normal 3.70-4.87 [...] Blood Cells % 0 Comp Metabolic 07/15/2018 [facility] Sodium 142 mmol/L Normal 135-[address] [place] [address] [phone] Potassium 3.9 mmol/L Normal 3.5-5.0 Chloride 107 [...] Egfr 93.3 >60 1 Laboratory test 07/15/2018 [facility] Magnesium 2.0 mg/dL Normal 1.9-2.7 finding [address] [place] [address] [phone] Troponin-I (TnI) 0.00 ng/mL <0.04 2 Laboratory test 07/15/2018 [facility] Valproic Acid 37.0 Low 50-100 3, 4 finding [address] [facility] (Depakene) g/[place] [address] [phone] 1 Because ethnic data is not always [...] immediately to secondary confirmatory testing. Using the [employer] DxI 800 Access Immunoassay systems, the 99th percentile upper reference limit was demonstrated to be < 0.03 ng/mL. 3 [id number] [facility] [address], Room Number 312D 4 [id number] [facility] [address], Room Number 312D Procedures Description No Information Available Medical Devices Description No Information Available Encounters Type Date Location Provider Dx Diagnosis Office Visit 12/03/2018 Orthopedic Nito Toledo MD S32.502D Unsp fracture of 10:15a [facility] left pubis, subs for fx w routn heal Office Visit 10/17/2018 [facility] Tierra Grande S32.502D Unsp fracture of 11:45a D.O. left pubis, subs for fx w [...] 08/26/2018 [facility] G40.909 Epilepsy, unsp, 11:00a [facility], not intractable, N.P. without status epilepticus G31.09 Other frontotemporal dementia Office Visit 06/19/2018 10:00a [facility] Tierra G40.909 Epilepsy, unsp , not Harjinder, D.O. intractable, without status epilepticus G31.09 Other frontotemporal dementia F31.4 Bipolar disord, crnt epsd depress, sev, w/o psych features I10 Essential (primary) hypertension R63.4 Abnormal weight loss Z66 Do not resuscitate Assessments Date Code Description Provider 12/03/2018 S32.502D Unspecified fracture of left pubis, [...] D.O. 10/17/2018 F31.4 Bipolar disorder, current episode Tierra Grande D.O. depressed, severe, without 10/17/2018 I10 Essential (primary) hypertension Tierra Grande D.O. 10/17/2018 Z66 Do not resuscitate T[place] Grande D.O. 09/24/2018 S32.502A Unspecified fracture of left pubis, initial Nito Toledo MD encounter for closed fracture 08/26/2018 G40.909 Epilepsy, [...] severe, without 06/19/2018 I10 Essential (primary) hypertension T[place] Grande D.O. 06/19/2018 R63.4 Abnormal weight loss T[place] Grande D.O. 06/19/2018 Z66 Do not resuscitate Tierra Grande D.O. Plan of Treatment Future Appointment(s):12/09/2018 11:45 am - Beni Chaney M.D. at [facility]12/03/2018 - Nito Toledo, MDS32.502D Unspecified fracture of left pubis, subsequent encounter forFollow up:Follow up: as needed Functional Status Description No Information Available Mental Status Description No Information Available Referrals Description No Information Available
[2018-12-19 19:01] LABS: C Reactive Protein 126.84 mg/L (<8.01)
[2018-12-19] MEDS ORDERED: Piperacillin/Tazobac ADVAN(*) 3.375 GM in NS 0.9% 100 ML* 100 ML IVPB ONE (19:08)
[2018-12-19] MEDS ORDERED: NS 0.9% 100 ML* 100 ML ONE (19:31)
[2018-12-19] MEDS ORDERED: Iohexol 300* (CONTRAST) 10 ML SDV IV ONE (19:45)
[2018-12-19] MEDS ORDERED: Lactated Ringers 1000 ML Bag* 1,000 ML IV SCH (22:00)
--- NOTE | 2018-12-19 22:11 | PN ---
Progress Note - Progress Note Date of Service: 12/19/18 Note: I was asked to see Keisha in the ED. She was sent in from [facility] for lethargy and was found to be dehydrated with mild leukocytosis. Reportedly by the ED provider she became more alert and has started talking some. When I saw Keisha she smiled when I called her name. She mimicked back to me "how are you?" She is not talking as much as she typically does however. Her exam revealed a HR in the 90's. Lungs are CTA anteriorly. Her oral mucosa remains dry. Abd is soft, NT, ND. Her VS are stable with a good BP and HR in the 90's. She is afebrile. I suspect she may have a UTI based on her symptoms and urinalysis. I recommend giving Keisha another liter of fluid and have her try to eat/drink. I think she should be started on keflex for possible UTI. I have spoke to the patient's sister. I informed her of the plan to have the DIPPER MACHINE OPERATOR at [facility] see Keisha tomorrow and I will follow up on Sunday. If needed she can receive IVF at [facility] if her oral intake does not pickle processor immediately.
[2018-12-20 02:39] VITALS: BP 125/81
== END 2018-12-20 02:39 | disposition home or self-care (01) ==
LOC: ED 17:33
DX: R41.82 Altered mental status, unspecified (principal); E86.0 Dehydration; N39.0 Urinary tract infection, site not specified; S32.512A Fracture of superior rim of left pubis, initial encounter for closed fracture; X58.XXXA Exposure to other specified factors, initial encounter; Y92.9 Unspecified place or not applicable; Z90.49 Acquired absence of other specified parts of digestive tract; Z90.710 Acquired absence of both cervix and uterus; K57.30 Diverticulosis of large intestine without perforation or abscess without bleeding; F03.90 Unspecified dementia, unspecified severity, without behavioral disturbance, psychotic disturbance, mood disturbance, and anxiety; F41.9 Anxiety disorder, unspecified; F32.9 Major depressive disorder, single episode, unspecified; Z79.899 Other long term (current) drug therapy
CPT/HCPCS: 36415; 70450; 71045; 74177; 80053; 81003; 81015; 82550; 82803; 83605; 83690; 83880; 84484; 85025; 85610; 85730; 86140; 87040; 87086; 93005; 96361; 96365; 99285; J2543; Q9967